=== PATIENT | female | born 1980 | race Caucasian/White ===

== ENCOUNTER 2017-01-31 16:23 | Emergency (ER) | payer OTHER ==
[2017-01-31] MEDS ORDERED: SODIUM CHLORIDE 0.9% 2,000 ML IV STA (16:53)
[2017-01-31] MEDS ORDERED: IBUPROFEN IV 400 MG in SODIUM CHLORIDE 0.9% 250 ML IV ONE (16:55)
[2017-01-31] MEDS ORDERED: ACETAMINOPHEN IV (For NPO) 1,000 MG in SALINE 100 100ML.BAG IVPB STA (16:55)
[2017-01-31] MEDS ORDERED: cefTRIAXone 2,000 MG in SODIUM CHLORIDE 0.9% 100 ML IVPB STA (16:55)
--- NOTE | 2017-01-31 17:04 | ED ---
General Adult HPI - General Chief complaint: Abdominal Pain Stated complaint: Poss UTI Time Seen by Provider: 01/31/17 16:38 Source: patient, RN notes reviewed Mode of arrival: ambulatory Limitations: no limitations - History of Present Illness Initial comments: Patient 36-year-old female who presents emergency room today with chief complaint of right-sided flank pain. Patient does admit that she began she had a urinary tract infection approximately a week ago. She states that she began having right-sided flank pain today. She thought that the UTI had gone away. Patient admits to bodyaches. Admits to Chills. Denies any other complaints or symptoms at this time. Patient denies any recent shortness of breath, chest pain , back pain, abdominal pain, numbness or tingling, dysuria or hematuria, constipation or diarrhea, headaches or visual changes, or any other complaints. - Related Data Previous Rx's Medication Instructions Recorded Ciprofloxacin HCl [Cipro] 500 mg PO Q12HR #20 day 01/31/17 Ibuprofen [Motrin] 600 mg PO Q6HR PRN #30 day 01/31/17 Phenazopyridine [Pyridium] 100 mg PO TID 3 Days 01/31/17 Allergies Allergy/AdvReac Type Severity Reaction Status Date / Time No Known Allergies Allergy Verified 01/31/17 16:30 Review of Systems ROS Statement: Those systems with pertinent positive or pertinent negative responses have been documented in the HPI. ROS Other: All systems not noted in ROS Statement are negative. Past Medical History Past Medical History: No Reported History History of Any Multi-Drug Resistant Organisms: None Reported Past Surgical History: Section, Hysterectomy Additional Past Surgical History / Comment(s): d & c x3 Past Psychological History: No Psychological Hx Reported Smoking Status: Never smoker Past Alcohol Use History: Occasional Past Drug Use History: None Reported General Exam - General Exam Comments Initial Comments: General: The patient is awake and alert, in no distress, and does not appear acutely ill. Eye: Pupils are equal, round and reactive to light, extra-ocular movements are intact. No nystagmus. There is normal conjunctiva bilaterally. No signs of icterus. Ears, nose, mouth and throat: There are moist mucous membranes and no oral lesions. Neck: The neck is supple, there is no tenderness or JVD. Cardiovascular: There is a regular rate and rhythm. No murmur, rub or gallop is appreciated. Respiratory: Lungs are clear to auscultation, respirations are non-labored, breath sounds are equal. No wheezes, stridor, rales, or rhonchi. Gastrointestinal: Abdomen. Normal bowel sounds. Soft on palpation. Patient has no abdominal tenderness. Does have right-sided flank tenderness. No rebound or guarding. Musculoskeletal: Normal ROM, no tenderness. Strength 5/5. Sensation intact. Pulses equal bilaterally 2+. Neurological: A&O x 3. CN II-XII intact, There are no obvious motor or sensory deficits. Coordination appears grossly intact. Speech is normal. Skin: Skin is warm and dry and no rashes or lesions are noted. Psychiatric: Cooperative, appropriate mood & affect, normal judgment. Limitations: no limitations Course Vital Signs 01/31/17 01/31/17 16:27 18:15 Temperature 103.0 F H 98.7 F Pulse Rate 121 H 93 Respiratory 18 14 Rate Blood Pressure 140/71 112/70 O2 Sat by Pulse 100 98 Oximetry EKG Findings - EKG Comments: EKG Findings:: EKG performed at 1701: Shows sinus tachycardia at 101 bpm. UT interval 128. QRS 70. QT/QTC 340/440. No acute ST changes. Medical Decision Making - Medical Decision Making Patient reexamined at this time shows no signs of distress. Does admit that she 's feeling better here in the emergency room. Patient's labs been reviewed does show evidence for urinary tract infection. She was given 2 g Rocephin here in the emergency room. Given 2 L of saline. Feeling better at this time. X-ray reviewed shows evidence for possible ileus at this time. Case discussed in detail with attending physician . Patient will be discharged home on antibiotics. Advised to follow-up family doctor over the next 1-2 days. Advised return to emergency room if any symptoms increase worsen or for any other concerns. - Lab Data Result diagrams: 01/31/17 16:45 01/31/17 16:45 Lab Results 01/31/17 01/31/17 01/31/17 Range/Units 16:45 16:45 16:45 WBC 13.5 H (3.8-10.6) k/uL RBC 4.58 (3.80-5.40) m/uL Hgb 14.7 (11.4-16.0) gm/dL Hct 41.3 (34.0-46.0) % MCV 90.2 (80.0-100.0) fL MCH 32.0 (25.0-35.0) pg MCHC 35.5 (31.0-37.0) g/dL RDW 13.3 (11.5-15.5) % Plt Count 197 (150-450) k/uL Neutrophils % 93 % Lymphocytes % 4 % Monocytes % 2 % Eosinophils % 0 % Basophils % 0 % Neutrophils # 12.6 H (1.3-7.7) k/uL Lymphocytes # 0.6 L (1.0-4.8) k/uL Monocytes # 0.3 (0-1.0) k/uL Eosinophils # 0.0 (0-0.7) k/uL Basophils # 0.0 (0-0.2) k/uL Sodium 135 L (137-145) mmol/L Potassium 4.0 (3.5-5.1) mmol/L Chloride 98 (98-107) mmol/L Carbon Dioxide 25 (22-30) mmol/L Anion Gap 12 mmol/L BUN 11 (7-17) mg/dL Creatinine 0.70 (0.52-1.04) mg/dL Est GFR (MDRD) Af Amer >60 (>60 ml/min/1.73 sqM) Est GFR (MDRD) Non-Af >60 (>60 ml/min/1.73 sqM) Glucose 113 H (74-99) mg/dL Plasma Lactic Acid [place] 2.0 (0.7-2.0) mmol/L Calcium 9.4 (8.4-10.2) mg/dL Total Bilirubin 0.9 (0.2-1.3) mg/dL AST 19 (14-36) U/L ALT 25 (9-52) U/L Alkaline Phosphatase 78 (38-126) U/L Total Protein 7.2 (6.3-8.2) g/dL Albumin 4.4 (3.5-5.0) g/dL Amylase 39 (30-110) U/L Lipase 59 (23-300) U/L Urine Color Urine Appearance (Clear) Urine pH (5.0-8.0) Ur Specific [place] (1.001-1.035) Urine Protein (Negative) Urine Glucose (UA) (Negative) Urine Ketones (Negative) Urine Blood (Negative) Urine Nitrite (Negative) Urine Bilirubin (Negative) Urine Urobilinogen (<2.0) mg/dL Ur Leukocyte Esterase (Negative) Urine RBC (0-5) /hpf Urine WBC (0-5) /hpf Ur Squamous Epith Cells (0-4) /hpf Urine Bacteria (None) /hpf Urine Mucus (None) /hpf Urine HCG, Qual (Not Detectd) 01/31/17 01/31/17 Range/Units 16:50 17:00 WBC (3.8-10.6) k/uL RBC (3.80-5.40) m/uL Hgb (11.4-16.0) gm/dL Hct (34.0-46.0) % MCV (80.0-100.0) fL MCH (25.0-35.0) pg MCHC (31.0-37.0) g/dL RDW (11.5-15.5) % Plt Count (150-450) k/uL Neutrophils % % Lymphocytes % % Monocytes % % Eosinophils % % Basophils % % Neutrophils # (1.3-7.7) k/uL Lymphocytes # (1.0-4.8) k/uL Monocytes # (0-1.0) k/uL Eosinophils # (0-0.7) k/uL Basophils # (0-0.2) k/uL Sodium (137-145) mmol/L Potassium (3.5-5.1) mmol/L Chloride (98-107) mmol/L Carbon Dioxide (22-30) mmol/L Anion Gap mmol/L BUN (7-17) mg/dL Creatinine (0.52-1.04) mg/dL Est GFR (MDRD) Af Amer (>60 ml/min/1.73 sqM) Est GFR (MDRD) Non-Af (>60 ml/min/1.73 sqM) Glucose (74-99) mg/dL Plasma Lactic Acid [place] (0.7-2.0) mmol/L Calcium (8.4-10.2) mg/dL Total Bilirubin (0.2-1.3) mg/dL AST (14-36) U/L ALT (9-52) U/L Alkaline Phosphatase (38-126) U/L Total Protein (6.3-8.2) g/dL Albumin (3.5-5.0) g/dL Amylase (30-110) U/L Lipase (23-300) U/L Urine Color Yellow Urine Appearance Cloudy H (Clear) Urine pH 8.0 (5.0-8.0) Ur Specific [place] 1.011 (1.001-1.035) Urine Protein 1+ H (Negative) Urine Glucose (UA) Negative (Negative) Urine Ketones Negative (Negative) Urine Blood Small H (Negative) Urine Nitrite Positive H (Negative) Urine Bilirubin Negative (Negative) Urine Urobilinogen <2.0 (<2.0) mg/dL Ur Leukocyte Esterase Large H (Negative) Urine RBC 10 H (0-5) /hpf Urine WBC >182 H (0-5) /hpf Ur Squamous Epith Cells 2 (0-4) /hpf Urine Bacteria Rare H (None) /hpf Urine Mucus Rare H (None) /hpf Urine HCG, Qual Not Detected (Not Detectd) Disposition Clinical Impression: Acute pyelonephritis Disposition: HOME SELF-CARE Condition: Good Instructions: Urinary Tract Infection in Women (ED) Additional Instructions: Please use medication as discussed. Please follow-up with family doctor in the next 2 days. Please return to emergency room if the symptoms increase or worsen or for any other concerns. Prescriptions: Ciprofloxacin HCl [Cipro] 500 mg PO Q12HR #20 day Ibuprofen [Motrin] 600 mg PO Q6HR PRN #30 day PRN Reason: Pain Phenazopyridine [Pyridium] 100 mg PO TID 3 Days Referrals: Neha Irving III, MD [Primary Care Provider] - 1-2 days Time of Disposition: 18:39
[2017-01-31 17:08] LABS: Basophils % (A) 0 %; CH 30.7; CHCM 34.2; Eosinophils % (A) 0 %; HCT 41.3 % (34.0-46.0); HDW 2.57; HGB 14.7 gm/dL (11.4-16.0); Luc # (Auto) 0.05; Luc % (Auto) 0; Lymphocytes # (A) 0.6 k/uL (1.0-4.8); Lymphocytes % (A) 4 %; MCHC 35.5 g/dL (31.0-37.0); MCV 90.2 fL (80.0-100.0); Mean Platelet Volume 8.2; Monocytes # (A) 0.3 k/uL (0-1.0); Monocytes % (A) 2 %; Neutrophils # (A) 12.6 k/uL (1.3-7.7); Neutrophils % (A) 93 %; RBC 4.58 m/uL (3.80-5.40); RDW 13.3 % (11.5-15.5); WBC 13.5 k/uL (3.8-10.6); WBC (Perox) 12.73
[2017-01-31 17:23] LABS: ALT 25 U/L (9-52); AST 19 U/L (14-36); Alkaline Phosphatase 78 U/L (38-126); Amylase 39 U/L (30-110); Anion Gap 12 mmol/L; Blood Urea Nitrogen 11 mg/dL (7-17); Calcium 9.4 mg/dL (8.4-10.2); Carbon Dioxide 25 mmol/L (22-30); Chloride 98 mmol/L (98-107); Glucose 113 mg/dL (74-99); Non-African American GFR(MDRD) >60 (>60 ml/min/1.73 sqM); Sodium 135 mmol/L (137-145); Total Bilirubin 0.9 mg/dL (0.2-1.3); Total Protein 7.2 g/dL (6.3-8.2)
[2017-01-31 17:38] LABS: Appearance,Urine Cloudy (Clear); Bacteria,Urine Rare /hpf; Bilirubin,Urine Negative (Negative); Glucose,Urine (UA) Negative (Negative); Ketones,Urine Negative (Negative); Leukocyte Esterase,Urine Large (Negative); Mucus,Urine Rare /hpf; Nitrite,Urine Positive (Negative); Particle Count 25694; Protein,Urine 1+ (Negative); RBC,Urine 10 /hpf (0-5); Specific Gravity,Urine 1.011 (1.001-1.035); Squamous Epithelial Cell,Urine 2 /hpf (0-4); UA Billing (MACRO vs. MICRO) MICRO; Urobilinogen,Urine <2.0 mg/dL (<2.0); WBC,Urine >182 /hpf (0-5)
--- NOTE | 2017-01-31 18:44 | XR ---
EXAMINATION TYPE: XR KUB DATE OF EXAM: 01/31/2017 CLINICAL DATA: 36-year-old female with abdominal pain. [facility] COMPARISON: None. FINDINGS: Lung bases are clear. No evidence for free intraperitoneal air. There are mildly dilated small bowel loops in the left abdomen measuring up to 3.3 cm. Colonic gas is present with mild stool in the right hemicolon. Air fluid levels are demonstrated. No suspicious calcifications seen. IMPRESSION: Dilated small bowel loops with air-fluid levels. Given the presence of colonic gas as well, findings may reflect enteritis or ileus rather than early small bowel obstruction. Follow-up as indicated.
[2017-01-31 19:54] VITALS: BP 105/55; PULSE 99; RESP 18; TEMP 98.4
== END 2017-01-31 19:54 | disposition home or self-care (01) ==
LOC: EC 16:23
DX: N10 Acute pyelonephritis (principal)
CPT/HCPCS: 36415; 93005; 80053; 82150; 83605; 83690; 85025; 81001; 81025; 87040; 87086; 87077; 87186; 74000; 99284; 96365; 96368; J0696; J0131; J1741

== ENCOUNTER 2018-05-19 23:18 | Emergency (ER) | payer OTHER ==
--- NOTE | 2018-05-19 23:51 | XR ---
EXAMINATION TYPE: XR chest 2V DATE OF EXAM: 05/19/2018 COMPARISON: NONE HISTORY: Cough TECHNIQUE: Frontal and lateral views of the chest are obtained. FINDINGS: Heart and mediastinum are normal. Lungs are clear. Diaphragm is normal bony thorax appears normal. Pulmonary vascularity is normal. IMPRESSION: Normal chest
--- NOTE | 2018-05-20 00:29 | ED ---
URI HPI - General Chief Complaint: Upper Respiratory Infection Stated Complaint: Cough Time Seen by Provider: 05/20/18 00:27 Source: patient Mode of arrival: ambulatory Limitations: no limitations - Related Data Home Medications Medication Instructions Recorded Confirmed No Known Home Medications 05/19/18 05/19/18 Allergies Allergy/AdvReac Type Severity Reaction Status Date / Time No Known Allergies Allergy Verified 05/19/18 23:22 Review of Systems ROS Statement: Those systems with pertinent positive or pertinent negative responses have been documented in the HPI. ROS Other: All systems not noted in ROS Statement are negative. Past Medical History Past Medical History: No Reported History History of Any Multi-Drug Resistant Organisms: None Reported Past Surgical History: Section, Hysterectomy Additional Past Surgical History / Comment(s): d & c x3 Past Psychological History: No Psychological Hx Reported Smoking Status: Never smoker Past Alcohol Use History: Occasional Past Drug Use History: None Reported General Exam Limitations: no limitations Course Vital Signs 05/19/18 23:19 Temperature 98.3 F Pulse Rate 81 Respiratory 18 Rate Blood Pressure 150/92 O2 Sat by Pulse 98 Oximetry Disposition Referrals: Neha Irving III, MD [Primary Care Provider] - 1-2 days
--- NOTE | 2018-05-20 00:50 | ED ---
URI HPI - General Chief Complaint: Upper Respiratory Infection Stated Complaint: Cough Time Seen by Provider: 05/20/18 00:27 Source: patient Mode of arrival: ambulatory Limitations: no limitations - History of Present Illness Initial Comments: 38-year-old female with no past medical history presenting today for chief complaint of cough 3 days. Patient states that Thursday night she developed a mild cough, increased by Thursday. She states that is mostly dry with some occasional phlegm. Patient does admit to congestion. Patient denies fever, chills, night sweats, wheezing, stridor, difficulty breathing, dyspnea on exertion. Patient states she has developed a sore throat from coughing, denies pain with swallowing, difficulty breathing or swallowing. Patient denies any body aches or general malaise. Patient denies hemoptysis or lower extremity swelling. Remainder of ROS negative, patient denies any recent fever, chills, shortness of breath, chest pain, back pain, abdominal pain, nausea or vomiting, numbness or tingling, dysuria or hematuria, constipation or diarrhea, headaches or visual changes, or any other complaints. She denies smoking history.upon arrival patient is afebrile, 97% on room air. Patient appears well, no signs of respiratory distress. - Related Data Previous Rx's Medication Instructions Recorded Albuterol Inhaler [Ventolin Hfa 1 - 2 puff INHALATION RT-Q6H PRN 7 05/20/18 Inhaler] Days #1 inhaler Benzonatate [Tessalon Perles] 100 mg PO TID PRN 7 Days #21 05/20/18 capsule Loratadine [Claritin] 10 mg PO DAILY 7 Days #7 tab 05/20/18 predniSONE 20 mg PO DAILY 4 Days #4 tab 05/20/18 Allergies Allergy/AdvReac Type Severity Reaction Status Date / Time No Known Allergies Allergy Verified 05/19/18 23:22 Review of Systems ROS Statement: Those systems with pertinent positive or pertinent negative responses have been documented in the HPI. ROS Other: All systems not noted in ROS Statement are negative. Constitutional: Denies: fever, chills, night sweats ENT: Reports: throat pain. Denies: ear pain Respiratory: Reports: cough. Denies: dyspnea, wheezes, hemoptysis, stridor Cardiovascular: Denies: chest pain, palpitations, dyspnea on exertion Endocrine: Denies: fatigue Gastrointestinal: Denies: abdominal pain, nausea, vomiting, diarrhea, constipation, hematemesis, melena, hematochezia Genitourinary: Denies: urgency, dysuria, frequency, hematuria Musculoskeletal: Denies: back pain Skin: Denies: rash, lesions Neurological: Denies: headache, weakness, numbness, paresthesias, confusion, abnormal gait Past Medical History Past Medical History: No Reported History History of Any Multi-Drug Resistant Organisms: None Reported Past Surgical History: Section, Hysterectomy Additional Past Surgical History / Comment(s): d & c x3 Past Psychological History: No Psychological Hx Reported Smoking Status: Never smoker Past Alcohol Use History: Occasional Past Drug Use History: None Reported General Exam - General Exam Comments Initial Comments: General: The patient is awake and alert, in no distress, and does not appear acutely ill. Eye: Pupils are equal, round and reactive to light, extra-ocular movements are intact. No nystagmus. There is normal conjunctiva bilaterally. No signs of icterus. Ears, nose, mouth and throat: There are moist mucous membranes and no oral lesions. oropharynx was not erythematous, postnasal drip noted. No tonsillar enlargement exudates or lesions. Uvula midline. TM wnl b/l. Normal inspection EAC. Neck: The neck is supple, there is no tenderness or JVD. no anterior cervical lymphadenopathy. Cardiovascular: There is a regular rate and rhythm. No murmur, rub or gallop is appreciated. Respiratory: Lungs are clear to auscultation, respirations are non-labored, breath sounds are equal. No wheezes, stridor, rales, or rhonchi.no signs of parenchymal consolidation. No retractions or abdominal breathing. No signs of rest or distress Gastrointestinal: Soft, non-distended, non-tender abdomen without masses or organomegaly noted. There is no rebound or guarding present. Musculoskeletal: Normal ROM, no tenderness. Strength 5/5. Sensation intact. Radial pulses equal bilaterally 2+. Neurological: A&O x 3. CN II-XII intact, There are no obvious motor or sensory deficits. Coordination appears grossly intact. Speech is normal. Skin: Skin is warm and dry and no rashes or lesions are noted. Psychiatric: Cooperative, appropriate mood & affect, normal judgment. Limitations: no limitations Course Vital Signs 1105/20/18 05/20/18 23:19 00:20 01:49 Temperature 98.3 F 97.9 F Pulse Rate 81 65 Respiratory 18 19 20 Rate Blood Pressure 150/92 113/78 O2 Sat by Pulse 98 97 Oximetry Medical Decision Making - Medical Decision Making Vital signs stable, patient oxygenating well. No signs of respiratory distress. Physical exam unremarkable, lungs are clear to auscultation. Dry cough noted on exam. Patient has no fever, no signs of tachypnea no rales on exam or signs of parenchymal consolidation. At this time I feel patient's symptoms are consistent with a bronchitis. Patient denies any body, malaise or symptomology concerning for influenza. Patient's overall well-appearing. Patient was given Tessalon Perles and prednisone for treatment of bronchitis. In addition patient was given also prescription for Tessalon Perles, prednisone , albuterol inhaler and Claritin for postnasal drip. Patient is agreeable plan seen she is ready for discharge. Return parameters discussed In detail withpatient who verbalized understanding.patient is to follow-up with primary care provider in one to 2 days. I discussed case in detail with attending Dr. Allen, who agrees with impression and plan. Patient discharged in stable condition, denied questions at this time. Disposition Clinical Impression: Bronchitis Disposition: HOME SELF-CARE Condition: Good Instructions: Acute Bronchitis (ED) Additional Instructions: Please use medication as discussed. Please follow-up with family doctor in the next 2 days. Please return to emergency room if the symptoms increase or worsen or for any other concerns. Prescriptions: Albuterol Inhaler [Ventolin Hfa Inhaler] 1 - 2 puff INHALATION RT-Q6H PRN 7 Days #1 inhaler PRN Reason: Shortness Of Breath Benzonatate [Tessalon Perles] 100 mg PO TID PRN 7 Days #21 capsule PRN Reason: Cough Loratadine [Claritin] 10 mg PO DAILY 7 Days #7 tab predniSONE 20 mg PO DAILY 4 Days #4 tab Is patient prescribed a controlled substance at d/c from ED?: No Referrals: Neha Irving III, MD [Primary Care Provider] - 1-2 days Time of Disposition: 00:50
[2018-05-20] MEDS ORDERED: BENZONATATE 100 MG CAP PO STA (01:00)
[2018-05-20] MEDS ORDERED: predniSONE 20 MG TAB PO STA (01:00)
[2018-05-20 01:50] VITALS: BP 113/78; PULSE 65; RESP 20; TEMP 97.9
== END 2018-05-20 01:49 | disposition home or self-care (01) ==
LOC: EC 23:18
DX: J40 Bronchitis, not specified as acute or chronic (principal)
CPT/HCPCS: 71046; 99283

== ENCOUNTER 2019-06-25 10:45 | Emergency (ER) | payer OTHER ==
[2019-06-25] MEDS ORDERED: DEXAMETHASONE 4 MG TAB PO STA (12:15)
[2019-06-25] MEDS ORDERED: ACETAMINOPHEN TAB 500 MG TAB PO STA (12:15)
[2019-06-25] MEDS ORDERED: IBUPROFEN 600 MG TAB PO STA (12:15)
--- NOTE | 2019-06-25 12:24 | ED ---
URI HPI - General Source: patient, RN notes reviewed, old records reviewed Mode of arrival: ambulatory Limitations: no limitations <Mandi Santo - Last Filed: 06/26/19 06:55> <Hannah Shankar - Last Filed: 06/26/19 22:17> - General Chief Complaint: Upper Respiratory Infection Stated Complaint: cold Time Seen by Provider: 06/25/19 11:35 - History of Present Illness Initial Comments: 39-year-old female presents today for evaluation for concerns for cough congestion sore throat. Patient has had symptoms for 2 days. Low-grade temperatures. Patient has a normal history of sick contacts. Patient has had no return Tylenol as of today. Does complain of some chills. (Mandi Santo) - Related Data Previous Rx's Medication Instructions Recorded Albuterol Inhaler [Ventolin Hfa 1 - 2 puff INHALATION RT-Q6H PRN 7 05/20/18 Inhaler] Days #1 inhaler Benzonatate [Tessalon Perles] 100 mg PO TID PRN 7 Days #21 05/20/18 capsule Loratadine [Claritin] 10 mg PO DAILY 7 Days #7 tab 05/20/18 predniSONE 20 mg PO DAILY 4 Days #4 tab 05/20/18 Oseltamivir [Tamiflu] 75 mg PO Q12HR #10 cap 06/25/19 Allergies Allergy/AdvReac Type Severity Reaction Status Date / Time No Known Allergies Allergy Verified 06/25/19 11:17 Review of Systems ROS Other: All systems not noted in ROS Statement are negative. <Mandi Santo - Last Filed: 06/26/19 06:55> ROS Other: All systems not noted in ROS Statement are negative. <Hannah Shankar - Last Filed: 06/26/19 22:17> ROS Statement: Those systems with pertinent positive or pertinent negative responses have been documented in the HPI. Past Medical History Past Medical History: No Reported History History of Any Multi-Drug Resistant Organisms: None Reported Past Surgical History: Section, Hysterectomy Additional Past Surgical History / Comment(s): d & c x3 Past Psychological History: No Psychological Hx Reported Smoking Status: Never smoker Past Alcohol Use History: Occasional Past Drug Use History: None Reported <Mandi Santo - Last Filed: 06/26/19 06:55> General Exam Limitations: no limitations General appearance: alert, in no apparent distress Head exam: Present: atraumatic, normocephalic, normal inspection Eye exam: Present: normal appearance, PERRL, EOMI. Absent: scleral icterus, conjunctival injection, periorbital swelling ENT exam: Present: normal oropharynx, mucous membranes moist Neck exam: Present: normal inspection. Absent: tenderness, meningismus, lymphadenopathy Respiratory exam: Present: normal lung sounds bilaterally. Absent: respiratory distress, wheezes, rales, rhonchi, stridor Cardiovascular Exam: Present: regular rate, normal rhythm, normal heart sounds. Absent: systolic murmur, diastolic murmur, rubs, gallop, clicks GI/Abdominal exam: Present: soft, normal bowel sounds. Absent: distended, tenderness, guarding, rebound, rigid Extremities exam: Present: normal inspection, full ROM, normal capillary refill. Absent: tenderness, pedal edema, joint swelling, calf tenderness Back exam: Present: normal inspection Neurological exam: Present: alert, oriented X3, CN II-XII intact Psychiatric exam: Present: normal affect, normal mood <Mandi Santo - Last Filed: 06/26/19 06:55> - General Exam Comments Initial Comments: 39-year-old female. Alert and oriented 3. (Mandi Santo) Course Vital Signs 06/25/19 06/25/19 11:15 13:35 Temperature 98.9 F 99 F Pulse Rate 93 83 Respiratory 16 18 Rate Blood Pressure 127/92 115/67 O2 Sat by Pulse 99 97 Oximetry Medical Decision Making <Mandi Santo - Last Filed: 06/26/19 06:55> <Hannah Shankar - Last Filed: 06/26/19 22:17> - Medical Decision Making Patient is a 39-year-old female presents today for evaluation for concerns for cough congestion sore throat. Patient has a fever. Patient has a low-grade temperature 99.7. Skin motion Tylenol. She is positive for influenza A. Lungs are clear to auscultation. Discusses time symptoms started just recently cancer the Patient Tamiflu. Discussed return parameters and PCP follow-up. (Mandi Santo) I was available for consultation in the emergency department. The history and physical exam were done by the midlevel provider. I was consulted for this patients care. I reviewed the case with the midlevel provider and based on their presentation of the patient, I agree with the assessment, medical decision making and plan of care as documented. Chart was dictated using [employer] dictation software. Attempts were made to correct any dictation errors however some typographical errors may persist. (Hannah Shankar) - Lab Data Lab Results 06/25/19 Range/Units 12:19 Influenza Type A RNA Detected H (Not Detectd) Influenza Type B (PCR) Not Detected (Not Detectd) Disposition Is patient prescribed a controlled substance at d/c from ED?: No Time of Disposition: 13:14 <Mandi Santo - Last Filed: 06/26/19 06:55> <Hannah Shankar - Last Filed: 06/26/19 22:17> Clinical Impression: Influenza A Disposition: HOME SELF-CARE Condition: Good Instructions (If sedation given, give patient instructions): Influenza (ED) Additional Instructions: Patient is to to take Motrin Tylenol for fever and pain. Take Tamiflu as prescribed. Follow-up with PCP. Return to emergency department if any alarming signs or symptoms occur. Prescriptions: Oseltamivir [Tamiflu] 75 mg PO Q12HR #10 cap Referrals: Nhea Irving III, MD [Primary Care Provider] - 1-2 days
[2019-06-25] MEDS ORDERED: OSELTAMIVIR 75 MG CAP PO STA (13:15)
[2019-06-25 13:46] VITALS: BP 115/67; PULSE 83; RESP 18; TEMP 99
== END 2019-06-25 13:35 | disposition home or self-care (01) ==
LOC: EC 10:45
DX: J10.1 Influenza due to other identified influenza virus with other respiratory manifestations (principal)
CPT/HCPCS: 87502; 99284; J8540